=== PATIENT | male | born 1980 | race African-American/Black ===

== ENCOUNTER 2019-12-30 22:17 | Emergency (ER) | payer OTHER ==
[~2019-12-30] VITALS: Ht 182.9 cm; Wt 93.0 kg
[2019-12-30 23:47] LABS: Basophils # (auto) 0.1 10 ^3/uL (0-0.2); Basophils % (auto) 0.9 % (0.0-2.0); Eosinophils # (auto) 0 10 ^3/uL (0-0.8); Eosinophils % (auto) 0.3 % (0.0-7.0); Hematocrit 40.8 % (41.0-53.0); Hemoglobin 14.3 g/dL (13.5-17.5); Lymphocytes # (auto) 2.7 10 ^3/uL (0.4-5.4); Lymphocytes % (auto) 24.4 % (10.0-50.0); Mean Corpuscular Hemoglobin 31.6 pg (28.0-32.0); Mean Corpuscular Hgb Conc. 35.1 g/dL (32.0-36.0); Mean Corpuscular Volume 90.1 fL (80.0-100.0); Monocytes # (auto) 0.8 10 ^3/uL (0-1.3); Neutrophils # (auto) 7.4 10 ^3/uL (1.6-8.6); Neutrophils % (auto) 67.4 % (37.0-80.0); Platelet Count (auto) 193 10^3/uL (140-450); Red Blood Cells 4.53 10^6/uL (4.5-5.90)
[2019-12-31 00:07] LABS: Chloride 106 mmol/L (98-107); Potassium 3.1 mmol/L (3.5-5.1); Sodium 140 mmol/L (136-145)
[2019-12-31 00:10] LABS: Albumin 4.2 g/dL (3.4-5.0); Anion Gap 8 (5-15); Blood Alcohol < 3.0 mg/dL (0-5); Blood Urea Nitrogen 15 mg/dL (7-18); Calcium 9.3 mg/dL (8.5-10.1); Carbon Dioxide 26 mmol/L (21-32); GFR African American 100 mL/min; GFR Non-African American 83 mL/min; Glucose 91 mg/dL (74-106); Magnesium 2.1 mg/dL (1.6-2.6)
[2019-12-31 00:14] LABS: Acetaminophen < 2.0 ug/mL (10-30); Salicylate < 1.7 mg/dL (2.8-20.0)
[2019-12-31 00:23] LABS: Alanine Aminotransferase 22 U/L (16-61); Alkaline Phosphatase 77 U/L (45-117); Aspartate Aminotransferase 21 U/L (15-37); Bilirubin, Total 0.3 mg/dL (0.2-1.0); Total Protein 8.8 g/dL (6.4-8.2)
[2019-12-31 01:14] LABS: Urine Bacteria FEW /hpf (None Seen); Urine Blood Negative /uL (Negative); Urine Specific Gravity 1.011 (1.001-1.035); Urine WBC 2 /hpf (0 - 3)
[2019-12-31 01:24] LABS: Alcohol, Urine < 3.0 mg/dL (0-5); Amphetamine Screen, Urine NEGATIVE (NEGATIVE); Barbiturate Scree,Urine NEGATIVE (NEGATIVE); Benzodiazephine Screen, Urine NEGATIVE (NEGATIVE); Cannabinoid Screen, Urine NEGATIVE (NEGATIVE); Cocaine Screen, Urine NEGATIVE (NEGATIVE); Opiate Scree,Urine NEGATIVE (NEGATIVE); Phencyclidine Screen, Urine NEGATIVE (NEGATIVE)
[2019-12-31] MEDS ORDERED: POTASSIUM CHL 20 Meq TABLET PO ONE ×2 (03:15→04:00)
[2019-12-31 06:00] VITALS: BP 104/69
== END 2019-12-31 06:32 ==
LOC: ER 22:17 → EDBD 22:17 → EEVIPCON 22:17 → ER 12-31 06:32
DX: T50.902A Poisoning by unspecified drugs, medicaments and biological substances, intentional self-harm, initial encounter (principal); F32.9 Major depressive disorder, single episode, unspecified; R45.851 Suicidal ideations; J45.909 Unspecified asthma, uncomplicated; I10 Essential (primary) hypertension; Y92.89 Other specified places as the place of occurrence of the external cause
CPT/HCPCS: 36415; 80053; 80307; 80320; 80329; 81001; 83735; 85025; 93005